=== PATIENT | male | born 1965 | race Caucasian/White ===

== ENCOUNTER 2023-07-12 18:22 | Emergency (ER) | payer OTHER ==
[2023-07-12 18:32] VITALS: BMI 27.9
[2023-07-12] MEDS ORDERED: morphine CARPU-JECT 2 MG/1 ML DISP.SYRIN IVPUSH ONE (18:49)
[2023-07-12] MEDS ORDERED: ATORVASTATIN CA 80 MG TABLET (FP) PO ONE (18:49)
[2023-07-12] MEDS ORDERED: ASPIRIN 325 MG ENTERIC COATED TABLET (FP) PO ONE (18:49)
[2023-07-12] MEDS ORDERED: ATORVASTATIN CA 80 MG TABLET (FP) ONE (18:52)
[2023-07-12] MEDS ORDERED: ASPIRIN 325 MG TABLET ONE (18:52)
[2023-07-12] MEDS ORDERED: HEPARIN NA (PORCINE) 5,000 UNITS/ML 1ML VIAL IVPUSH ONE (19:07)
[2023-07-12] MEDS ORDERED: TICAGRELOR 60 MG TABLET PO ONE (19:08)
[2023-07-12 19:17] LABS: BASO % 0.6 % (0-2.0); EOS % 0.7 % (0-4.5); HEMATOCRIT 50.4 % (35.4-49); HEMOGLOBIN 17.3 GM/dL (11.7-16.9); MCH 29.8 pg (25.7-33.7); MCHC 34.5 g/dl (32.0-35.9); MEAN CELL VOLUME 86.5 fl (80-96); MEAN PLT VOLUME 10.4 fl (7.5-11.1); MONO % 7.7 % (3.8-10.2); PLATELET COUNT 156 10^3/uL (134-434); RBC 5.82 M/mm3 (4.00-5.60); RDW 14.2 % (11.9-15.9); WHITE BLOOD COUNT 16.7 K/mm3 (4.0-10.0)
[2023-07-12] MEDS ORDERED: TICAGRELOR 90 MG TABLET PO ONE (19:19)
[2023-07-12] MEDS ORDERED: HEPARIN NA (PORCINE) 5,000 UNITS/ML 1ML VIAL ONE (19:20)
[2023-07-12 19:24] LABS: INR 1.07 (0.83-1.09); PROTHROMBIN TIME (PATIENT) 12.4 SEC (9.7-13.0)
[2023-07-12 19:27] LABS: ACTIVATED PTT 31.6 SECONDS (25.2-36.5)
[2023-07-12 19:40] LABS: ALBUMIN 3.6 g/dl (3.4-5.0)
[2023-07-12 19:41] LABS: BLOOD UREA NITROGEN 14.6 mg/dL (7-18); CALCIUM 8.7 mg/dL (8.5-10.1); MAGNESIUM 2.1 mg/dL (1.8-2.4)
[2023-07-12 19:46] LABS: BILIRUBIN,TOTAL 0.3 mg/dL (0.2-1); TOT PROT 6.8 g/dl (6.4-8.2)
[2023-07-12] MEDS ORDERED: NITROGLYCERIN SUBLINGUAL 1/150 0.4 MG TAB SL ONE (19:48)
[2023-07-12] MEDS ORDERED: NITROGLYCERIN SUBLINGUAL 1/150 0.4 MG TAB ONE (19:52)
[2023-07-12 20:22] VITALS: RESP 19; TEMP 98.7
[2023-07-12 20:44] VITALS: BP 137/78; PULSE 80
== END 2023-07-12 20:31 | disposition short-term general hospital (02) ==
LOC: JER 18:22
PROC: 3E033GC Introduction of Other Therapeutic Substance into Peripheral Vein, Percutaneous Approach (ICD-10-PCS; principal; 2023-07-12)
PROC: 3E033GC Introduction of Other Therapeutic Substance into Peripheral Vein, Percutaneous Approach (ICD-10-PCS; 2023-07-12)
DX: I21.3 ST elevation (STEMI) myocardial infarction of unspecified site (principal); R07.9 Chest pain, unspecified; R06.02 Shortness of breath
CPT/HCPCS: 36415; 71045-TC-FY; 80053; 83735; 84484; 85025; 85610; 85730; 86850; 86900; 86901; 87635; 93005; 93010; 99291; J1644